=== PATIENT | female | born 1980 | race Caucasian/White ===

== ENCOUNTER 2016-11-10 07:56 | Outpatient (CLI) | payer BC ==
[~2016-11-10] VITALS: Ht 144.8 cm; Wt 66.3 kg
[2016-11-10 08:06] VITALS: Ht 144.8 cm; Wt 66.3 kg
[2016-11-10 08:09] VITALS: BP 110/73; PULSE 83
[2016-11-10] MEDS ORDERED: PRENAT PO (08:10)
--- NOTE | 2016-11-10 09:09 | RADRPT ---
PROCEDURE: OB ultrasound for biophysical profile. CLINICAL INDICATION: Biophysical profile. TECHNIQUE: Multiple sonographic images of the pelvis were obtained. Transabdominal view of the gr avid uterus are available for review. COMPARISON: None. FINDINGS: breathing movement = 2/2 tone = 2/2 motion = 2/2 MARY = 8.4 cm Single live intrauterine with cardiac activity (155 beats per minute). IMPRESSION: 1. Single viable intrauterine gestation. 2. Biophysical profile = 8/8. 3. MARY = 8.4 cm, lower limits of normal. RPTAT: EE .Felice Patino MD, Date Time Electronically viewed and signed by .Felice Patino MD, on 11/10/2016 09:13 .C/
--- NOTE | 2016-11-10 18:16 | QN ---
Documentation Comment co ucx good FM vss exam wnl os closed cat I tracing a/p iup 39 weeks false labor dc home URIEL GUARDADO MD Nov 10, 2016 18:16
== END 2016-11-10 09:30 | disposition home or self-care (01) ==
LOC: OBT 07:56 → L-D 07:57 → OBT 09:30
PROVIDERS: ATTEND Specialist
DX: O26.893 Other specified pregnancy related conditions, third trimester (principal); Z3A.39 39 weeks gestation of pregnancy
CPT/HCPCS: 76818; Z7500; G0463

== ENCOUNTER 2016-11-14 05:10 | Inpatient (IN) | payer BC ==
[~2016-11-14] VITALS: Ht 144.8 cm; Wt 66.1 kg
[~2016-11-14 05:10] MED LIST: PRENAT PO
[2016-11-14 05:58] LABS: ADD SCAN DIFF NO
[2016-11-14] MEDS: LACTATED RINGER'S 1,000 ML IV SCH ×5 (05:58→21:52)
[2016-11-14] MEDS ORDERED: MISOPROSTOL 200 MCG TAB PR PRN ×2 (06:00→08:00)
[2016-11-14] MEDS ORDERED: METHYLERGONOVINE 0.2 MG INJ IM PRN (06:00)
[2016-11-14] MEDS ORDERED: OXYTOCIN 30 UNITS/LR 500 ML IV PRN (06:00)
[2016-11-14] MEDS ORDERED: CARBOPROST 250 MCG INJ IM PRN (06:00)
[2016-11-14] MEDS ORDERED: OXYTOCIN 30 UNITS/LR 500 ML IV SCH (06:00)
[2016-11-14] MEDS ORDERED: CEFAZOLIN 2 GM/50 ML (PMX) 50 ML IVPB ONE (06:00)
[2016-11-14] MEDS ORDERED: LACTATED RINGER'S 1,000 ML IV ONE (06:00)
[2016-11-14 06:18] VITALS: Ht 144.8 cm; Wt 66.1 kg
[2016-11-14 06:23] LABS: INR 0.95; PROTIME 12.7 Sec (12.2-14.2)
[2016-11-14 06:24] LABS: BASOPHILS % 0.2 % (0.0-2.0); EOSINOPHILS # 0.1 10^3/ul (0.0-0.5); EOSINOPHILS % 1.1 % (0.0-7.0); HEMATOCRIT 37.9 % (37.0-47.0); HEMOGLOBIN 12.3 g/dl (12.0-16.0); LYMPHOCYTES # 1.7 10^3/ul (0.8-2.9); LYMPHOCYTES % 19.3 % (15.0-51.0); MEAN CORPUSCULAR HEMOGLOBIN 29.6 pg (29.0-33.0); MEAN CORPUSCULAR HGB CONC 32.5 g/dl (32.0-37.0); MEAN CORPUSCULAR VOLUME 91.3 fl (82.0-101.0); MEAN PLATELET VOLUME 11.8 fl (7.4-10.4); MONOCYTE # 0.7 10^3/ul (0.3-0.9); MONOCYTES % 8.7 % (0.0-11.0); NEUTROPHILS % 70.2 % (39.0-77.0); PARTIAL THROMBOPLASTIN TIME 26.4 Sec (25.0-35.0); PLATELET COUNT 191 10^3/UL (140-415); RED BLOOD COUNT 4.15 10^6/ul (4.20-5.40); RED CELL DISTRIBUTION WIDTH 14.8 % (11.5-14.5); WHITE BLOOD COUNT 8.5 10^3/ul (4.8-10.8)
[2016-11-14 06:27] VITALS: BP 119/65; PULSE 84; RESP 17
[2016-11-14] MEDS ORDERED: morphine SULFATE/PF (10 MG/10 ML) INJ ONE (07:38)
[2016-11-14] MEDS ORDERED: FENTAnyl 50 MCG/ML VIAL ONE (07:38)
[2016-11-14] MEDS ORDERED: PHENYLephrine (100 MCG/ML) 5ML SYG ONE (07:38)
[2016-11-14] MEDS ORDERED: METOCLOPRAMIDE 10 MG INJ ONE (07:39)
[2016-11-14] MEDS ORDERED: OXYTOCIN 10 UNIT INJ ONE (07:39)
--- NOTE | 2016-11-14 07:43 | HP ---
Date/Time of Note Date/Time of Note DATE: 11/14/16 TIME: 07:41 OB - History Hx of Present Free Text/Dictation 36 YO with IUP at 39.3 wks with h/o c/s x 2 who desires to have repeat c/s and BTL Care: Good Care Ultrasounds: Normal mid trimester US Obstetrical Complications: None Medical Complications: None Past Family/Social History * Past Medical, Surgical, Family and Obstetric Histories reviewed from chart. OB Admission Exam Vital Signs Vital Signs Vital Signs Date Time Temp Pulse Resp B/P Pulse Ox O2 Delivery O2 Flow Rate FiO2 11/14/16 06:27 98.7 84 17 119/65 Room Air Physical Exam HEENT: WNL Heart: Rhythm Normal Lungs: Clear, Equal Abdomen: WNL Extremities: Normal Reflexes: Normal Last 72 hours Lab Results CBC & BMP 11/14/16 05:35 OB Assessment/Plan Other Assessment: 36 YO with IUP at 39.3 wks with h/o c/s x 2 who desires to have repeat c/s and BTL Other plan: repeat c/s and BTL BRISSA RITCHIE MD Nov 14, 2016 07:43
--- NOTE | 2016-11-14 07:44 | PREOPHP ---
DATE OF ADMISSION: 11/14/2016 HISTORY OF PRESENT ILLNESS: The patient is a 36-year-old 3, para 2 with history of previous delivery x2 in the past who desires to have repeat delivery and permanent sterili zation. I have discussed with patient the risks, benefits, indications, alternatives of procedure i ncluding, but not limited to risk of infection, bleeding, damage to other organs, bowel, bladder, he rnia formation, scar formation, possibility of blood transfusion, possibility of failure of tubal li gation and future pregnancies or ectopic were all discussed with patient. She was allowed to ask questions. All her questions were answered. Informed consent was obtained. PAST MEDICAL HISTORY: None. PAST SURGICAL HISTORY: Cholecystectomy and delivery x2. ALLERGIES: NO KNOWN DRUG ALLERGIES. MEDICATIONS: 1. vitamins. 2. Iron. REVIEW OF SYSTEMS: Significant as above. PHYSICAL EXAMINATION: VITAL SIGNS: Stable, afebrile. GENERAL: In no acute distress. HEENT: Normocephalic. No thyromegaly. HEART: Regular rate and rhythm. LUNGS: Clear to auscultation bilaterally. ABDOMEN: Soft, gravid, not tender. EXTREMITIES: No edema. ASSESSMENT: 1. Term . 2. History of previous delivery x2, desires permanent sterilization. PLAN: Repeat delivery and tubal ligation. Informed consent obtained. Dictated By: BRISSA DON/RAINER Conf#: [id number] DID#: [id number]
[2016-11-14] MEDS ORDERED: LANOLIN 7 GM TUBE TOP PRN (08:00)
[2016-11-14] MEDS ORDERED: OXYCODONE/ACETAMINOPHEN (5/325) TAB PO PRN (08:00)
[2016-11-14] MEDS ORDERED: NA PHOSPHATE/BIPHOS 133 ML ENEMA PR PRN (08:00)
[2016-11-14] MEDS ORDERED: DIPHENHYDRAMINE 50 MG INJ IV PRN ×2 (08:30)
[2016-11-14] MEDS ORDERED: morphine 2 MG INJ IV PRN ×2 (08:30)
[2016-11-14] MEDS ORDERED: ONDANSETRON 4 MG INJ IV PRN ×2 (08:30)
[2016-11-14] MEDS ORDERED: EPHEDrine SULFATE 50 MG/5 ML SYG IV PRN (08:30)
[2016-11-14] MEDS ORDERED: TRIMETHOBENZAMIDE 100 MG/ML VIAL IM PRN (08:30)
[2016-11-14] MEDS ORDERED: LABETALOL HCL 20MG INJ IV PRN (08:30)
[2016-11-14] MEDS ORDERED: FENTAnyl 50 MCG/ML VIAL IV PRN ×3 (08:30)
[2016-11-14] MEDS ORDERED: hydrALAzine 20 MG INJ IV PRN (08:30)
[2016-11-14] MEDS ORDERED: NALOXONE (0.4 MG/ML) INJ IV PRN (08:30)
[2016-11-14] MEDS ORDERED: MEPERIDINE 25 MG INJ IV PRN (08:30)
[2016-11-14] MEDS ORDERED: HYDROmorphONE (0.2 MG/ML) 10ML SYG IV PRN ×3 (08:30)
[2016-11-14] MEDS: SENNA/DOCUSATE NA (8.6MG/50MG) TAB PO SCH ×2 (09:00→21:22)
[2016-11-14 12:00] VITALS: BP 104/51; RESP 18
[2016-11-14] MEDS: IBUPROFEN 600 MG TAB PO SCH ×3 (12:00→23:50)
[2016-11-14 12:30] VITALS: BP 104/57; PULSE 84; RESP 18
[2016-11-14 13:00] VITALS: BP 93/60; PULSE 94; RESP 18
[2016-11-14 16:00] VITALS: BP 89/53; PULSE 76; RESP 16
[2016-11-14 20:00] VITALS: BP 100/63; PULSE 70; RESP 18
[2016-11-14] MEDS: KETOROLAC 30 MG INJ IV PRN (22:28)
--- NOTE | 2016-11-14 23:22 | OPR ---
DATE OF OPERATION: PREOPERATIVE DIAGNOSIS: Term , history of previous delivery x2, desires permanent sterilization. POSTOPERATIVE DIAGNOSES: 1. Term , history of previous delivery x2, desires permanent sterilization. 2. Pelvic adhesions. OPERATION: Repeat delivery, lysis of adhesions, bilateral salpingectomies. SURGEON: Brissa Hitchcock MD STYLIST APPRENTICE: Sudhakar Cornell MD ESTIMATED BLOOD LOSS: 700 COMPLICATIONS: None. CONSENT: Please see preoperative H and P that was done in my office for the consent process. PROCEDURE: She was taken to the operating room and given spinal anesthesia. She was prepped and dr lucas in the usual sterile fashion. Anesthesia was tested to be adequate. Surgical time-out was don e. The patient and procedures were identified. Knife was used to make a Pfannenstiel skin incision over the previous scars. Incision was taken down in layers. The fascia was cut, undermined, separ ated from the underlying muscle using sharp and blunt dissection. All the bleeders were cauterized. Peritoneum was entered bluntly. At this time we noted dense adhesions from omentum to anterior ab dominal wall, uterus and bilateral tubes. We only proceeded with lysis of adhesions to be able to g et access to pelvis and be able to do tubal ligations. We performed sharp and blunt dissection, at all times protecting bowel and bladder. A low transverse incision was developed over the uterus, an d amniotic fluid was clear and adequate. The baby was delivered without problems. The cord was cla mped and cut and handed to awaiting team. Placenta was then delivered. Uterus was exteriorized, wr apped in a moist lap. The inside uterus was cleaned using a dry lap. All debris and membranes were removed. Uterine incision was then closed using #1 Monocryl in 2 layers. The 6 cm distal end of t he right tube was ligated 3 times using 0 plain ties, and the ligated portion was cut, sent to patho logy. Same procedure was done on contralateral side. Uterus was inserted back inside abdominal cav ity, and irrigation was done. Gutters were cleaned. Uterine incision was evaluated. There was no bleeding. The tubal ligation sites evaluated, there was no bleeding. At this time the peritoneal c avity was explored. There were no surgical instruments or laps left behind. Peritoneum was closed using 3-0 Vicryl, and the muscles were approximated, and the fascia was closed using #1 Vicryl. Sub cutaneous tissue was cleaned, irrigated, all bleeders cauterized and the skin closed using 4-0 Monoc ryl. All counts correct. Dictated By: BRISSA DON/RAINER Conf#: [id number] DID#: [id number]
[2016-11-15] VITALS: BP 108/59; PULSE 81; RESP 18
--- NOTE | 2016-11-15 00:13 | PN ---
Date/Time of Note Date/Time of Note DATE: 11/15/16 TIME: 00:10 OB Subjective Subjective Subjective POD # 1. s/p Repeat c/s and BTL Denies any problems OB Objective Objective Objective AF, VSS Abdomen is soft Dressing is dry Ext: Bilateral 1+ edema mild lochia OB Assessment/Plan Other Assessment: s/p c/s and BTL. POD # 1 Doing well Other plan: continue current care BRISSA RITCHIE MD Nov 15, 2016 00:13
[2016-11-15] MEDS: LACTATED RINGER'S 1,000 ML IV SCH ×3 (00:46→07:39)
[2016-11-15 04:00] VITALS: BP 93/55; PULSE 79; RESP 18
[2016-11-15] MEDS: IBUPROFEN 600 MG TAB PO SCH ×3 (05:47→17:28)
[2016-11-15 07:33] LABS: ADD SCAN DIFF NO
[2016-11-15 07:39] LABS: BASOPHILS % 0.2 % (0.0-2.0); EOSINOPHILS % 0.3 % (0.0-7.0); HEMATOCRIT 26.2 % (37.0-47.0); HEMOGLOBIN 8.4 g/dl (12.0-16.0); LYMPHOCYTES # 0.9 10^3/ul (0.8-2.9); LYMPHOCYTES % 10.3 % (15.0-51.0); MEAN CORPUSCULAR HEMOGLOBIN 29.6 pg (29.0-33.0); MEAN CORPUSCULAR HGB CONC 32.1 g/dl (32.0-37.0); MEAN CORPUSCULAR VOLUME 92.3 fl (82.0-101.0); MEAN PLATELET VOLUME 11.7 fl (7.4-10.4); MONOCYTE # 0.9 10^3/ul (0.3-0.9); MONOCYTES % 9.7 % (0.0-11.0); PLATELET COUNT 135 10^3/UL (140-415); RED BLOOD COUNT 2.84 10^6/ul (4.20-5.40); RED CELL DISTRIBUTION WIDTH 14.6 % (11.5-14.5); WHITE BLOOD COUNT 8.8 10^3/ul (4.8-10.8)
[2016-11-15] MEDS: KETOROLAC 30 MG INJ IV PRN (07:58)
[2016-11-15] MEDS: SENNA/DOCUSATE NA (8.6MG/50MG) TAB PO SCH ×2 (07:59→21:00)
[2016-11-15 08:40] VITALS: BP 99/60; PULSE 80; RESP 18
[2016-11-15] MEDS: OXYCODONE/ACETAMINOPHEN (5/325) TAB PO PRN ×2 (09:51→21:35)
[2016-11-15 15:52] VITALS: BP 107/59; PULSE 79
[2016-11-15 19:45] VITALS: BP 109/66; PULSE 87; RESP 18
[2016-11-16 04:15] VITALS: BP 102/52; PULSE 83; RESP 18
[2016-11-16] MEDS: OXYCODONE/ACETAMINOPHEN (5/325) TAB PO PRN ×3 (05:04→20:06)
[2016-11-16] MEDS: IBUPROFEN 600 MG TAB PO SCH ×5 (06:00→23:46)
[2016-11-16 08:00] VITALS: BP 114/70; PULSE 86; RESP 18
[2016-11-16] MEDS: SENNA/DOCUSATE NA (8.6MG/50MG) TAB PO SCH ×2 (09:00→20:05)
--- NOTE | 2016-11-16 10:07 | PN ---
Date/Time of Note Date/Time of Note DATE: 11/16/16 TIME: 10:05 OB Subjective Subjective Subjective POD # 2 s/p Repeat c/s and BTL OB Objective Objective Objective Patient stable and doing well and she has no complaints today VSS HEENT: WNL Heart: Rhythm Normal Lungs: Clear Abdomen: WNL (Incision clean dry and intact) Extremities: Normal OB Assessment/Plan Other Assessment: POD # 2 s/p Repeat c/s and BTL Other plan: Encourage to ambulate Continue with present management Consider DC home tomorrow RONNIE YANG MD Nov 16, 2016 10:07
[2016-11-16 11:30] LABS: ADD SCAN DIFF NO
[2016-11-16 11:32] LABS: BASOPHILS % 0.2 % (0.0-2.0); EOSINOPHILS # 0.2 10^3/ul (0.0-0.5); EOSINOPHILS % 2.1 % (0.0-7.0); HEMATOCRIT 26.1 % (37.0-47.0); HEMOGLOBIN 8.5 g/dl (12.0-16.0); LYMPHOCYTES # 1.5 10^3/ul (0.8-2.9); LYMPHOCYTES % 15.1 % (15.0-51.0); MEAN CORPUSCULAR HEMOGLOBIN 30.4 pg (29.0-33.0); MEAN CORPUSCULAR HGB CONC 32.6 g/dl (32.0-37.0); MEAN CORPUSCULAR VOLUME 93.2 fl (82.0-101.0); MEAN PLATELET VOLUME 11.3 fl (7.4-10.4); MONOCYTE # 0.9 10^3/ul (0.3-0.9); MONOCYTES % 9.3 % (0.0-11.0); NEUTROPHIL # 7.1 10^3/ul (1.6-7.5); NEUTROPHILS % 72.7 % (39.0-77.0); PLATELET COUNT 168 10^3/UL (140-415); RED CELL DISTRIBUTION WIDTH 14.6 % (11.5-14.5); WHITE BLOOD COUNT 9.7 10^3/ul (4.8-10.8)
[2016-11-16 15:35] VITALS: BP 99/65; PULSE 75; RESP 18
[2016-11-16 20:00] VITALS: BP 114/74; PULSE 93; RESP 19
[2016-11-17 04:25] VITALS: BP 96/58; PULSE 80; RESP 19
[2016-11-17] MEDS: IBUPROFEN 600 MG TAB PO SCH ×2 (05:46→11:55)
[2016-11-17 08:15] VITALS: BP 110/69; PULSE 90; RESP 18
[2016-11-17] MEDS ORDERED: DIPHTH/TET/ACEL PERTUSS (ADULT) 0.5 ML VIAL IM* ONE (09:00)
[2016-11-17] MEDS ORDERED: MEASLES,MUMPS,RUBELLA VACCINE INJ SC* ONE (09:00)
[2016-11-17] MEDS: SENNA/DOCUSATE NA (8.6MG/50MG) TAB PO SCH (09:55)
[2016-11-17] MEDS ORDERED: PRENAT PO ×2 (14:25→14:54)
--- NOTE | 2016-11-17 14:27 | DS ---
Date/Time of Note Date/Time of Note DATE: 11/17/16 TIME: 14:26 Obstetrical Discharge Record Final Diagnosis Final Diagnosis: Term delivered Vaginal Delivery Obstetrical Delivery: Bilateral Tubal Ligation Section Section: Repeat Complications Other (Anemia) Augmentation: No Induction: No Rupture of Membranes: No Condition on Discharge Physical Assessment Voiding: Yes Bowel Movement: Yes Breast: Soft, non-tender, Filling Fundus: Firm Abdomen and Incision: soft, appropriate tenderness Calf Tenderness: No Patient Condition: Good BRISSA RITCHIE MD Nov 17, 2016 14:27
== END 2016-11-17 17:09 | disposition home or self-care (01) | DRG 766 ==
LOC: L-D 05:10 → EDUNIT# 07:30 → L-D 07:39 → PP1 12:10
PROVIDERS: ADMIT Specialist; ATTEND Specialist
PROC: 0UB70ZZ Excision of Bilateral Fallopian Tubes, Open Approach (ICD-10-PCS; 2016-11-14)
PROC: 10D00Z1 Extraction of Products of Conception, Low, Open Approach (ICD-10-PCS; principal; 2016-11-14 07:30)
DX: O34.211 Maternal care for low transverse scar from previous cesarean delivery (principal); O90.81 Anemia of the puerperium; Z30.2 Encounter for sterilization; Z3A.39 39 weeks gestation of pregnancy; Z37.0 Single live birth
CPT/HCPCS: 85025; 85610; 85730; 86592; 86850; 86900; 86901; 87340; 88302; 90715; 94760; 99464; J0690; J1885; J2274; J2370; J2590; J2765; J3010; J7120